=== PATIENT | male | born 1950 | race Caucasian/White ===

== ENCOUNTER 2017-11-24 15:39 | Emergency (ER) | payer MEDICARE ==
[~2017-11-24] VITALS: Ht 172.7 cm; Wt 95.2 kg
[2017-11-24 15:45] VITALS: Ht 172.7 cm; Wt 95.2 kg
[2017-11-24 17:14] LABS: BASOPHIL % 0.1 % (0-2); PLATELET COUNT 150 x10^3mcL (130-400); RED CELL DISTRIBUTION WIDTH 13.4 % (11.5-14.5)
[2017-11-24 17:45] LABS: CALCIUM 8.8 mg/dL (8.5-10.1); CARBON DIOXIDE 27.9 mmol/L (21-32); CHLORIDE SERUM 98 mmol/L (98-107); CREATININE SERUM 1.2 mg/dL (0.7-1.3); GFR1 > 60 mL/min; GLUCOSE SERUM 110 mg/dL (74-106); POTASSIUM SERUM 3.4 mmol/L (3.5-5.1); SODIUM SERUM 138 mmol/L (136-145)
[2017-11-24 17:49] LABS: ALBUMIN 3.6 g/dL (3.4-5.0); ALKALINE PHOSPHATASE 77 U/L (46-116); ALT/SGPT 46 U/L (16-63); AST/SGOT 27 U/L (15-37); BILIRUBIN TOTAL 0.92 mg/dL (0.20-1.00); TOTAL PROTEIN, SERUM 7.4 g/dL (6.4-8.2)
[2017-11-24 19:01] VITALS: BP 136/68
== END 2017-11-24 19:02 | disposition home or self-care (01) ==
LOC: ED 15:39
DX: J11.1 Influenza due to unidentified influenza virus with other respiratory manifestations (principal); I25.2 Old myocardial infarction; I10 Essential (primary) hypertension
CPT/HCPCS: 83880; 87804; C9113; J2405; J2765; J7030